=== PATIENT | female | born 1995 | race Caucasian/White ===

== ENCOUNTER 2022-01-04 11:15 | Emergency (ER) | payer OTHER ==
[~2022-01-04] VITALS: Ht 162.6 cm; Wt 77.0 kg
[2022-01-04] MEDS ORDERED: IBUPROFEN 600MG TABLET PO ONE (12:15)
[2022-01-04] MEDS ORDERED: IBUPROFEN 600MG TABLET PO SCH (16:15)
[2022-01-04] MEDS ORDERED: NAPR-681 PO (17:13)
[2022-01-04] MEDS ORDERED: CYCL5TAB PO (17:13)
[2022-01-04] MEDS ORDERED: VALA100044 PO (17:13)
[2022-01-04 17:30] VITALS: BP 122/87
== END 2022-01-04 18:30 | disposition home or self-care (01) ==
LOC: ER 11:15
DX: R59.0 Localized enlarged lymph nodes (principal); M43.6 Torticollis; B00.1 Herpesviral vesicular dermatitis; R01.1 Cardiac murmur, unspecified
CPT/HCPCS: 81025; 87070; 87430; 99283